=== PATIENT | male | born 1960 | race Caucasian/White ===

== ENCOUNTER 2024-03-20 17:43 | Emergency (ER) | payer BC, SELFPAY ==
[2024-03-20] VITALS (7 sets, daily range): BP systolic 83–125; BP diastolic 61–82; PULSE 79–110; RESP 10–20; TEMP 36.4; O2SAT 96–100
--- NOTE | ~2024-03-20 | XR_ITS ---
XR chest 1V portable DATE: 03/20/2024 19:10 INDICATION: Anaphylaxis TECHNIQUE: Portable upright AP chest on 03/20/2024 at 1906 hours COMPARISON: None FINDINGS: Normal heart size. There is aortic arch calcification and mild aortic tortuosity. No hilar or mediastinal enlargement. No pulmonary infiltrate or consolidation, pleural effusion or pulmonary vascular congestion or pneumo thorax is detected. Included skeletal structures are unremarkable. IMPRESSION: No active cardiopulmonary disease Aortic atherosclerosis Reviewed, dictated and finalized at location A.
--- NOTE | 2024-03-20 18:52 | ED.GENADULT ---
HPI - General Adult General Chief complaint: Nausea/Vomiting/Diarrhea Stated complaint: low blood pressure Time Seen by Provider: 03/20/24 18:50 History of Present Illness HPI narrative: This is a 63-year-old male presenting ED with chief complaint of multiple yellow jacket stings. Patient was out in the yd when his dog was attacked by several yellow jackets. While he was trying to save his dog he is sustained multiple stings to his elbows right hand and right neck. He then became very weak and shaky and his blood pressure was low. He is not have any trouble breathing/ throat swelling. He has had an episode of nausea and vomiting. No diarrhea. He has no previous anaphylactic reaction to bee stings. Related Data Allergies Allergy/AdvReac Type Severity Reaction Status Date / Time naproxen Allergy Mild itching Verified 12/26/20 09:11 and swelling PMFSH Past Medical History Medical History (Updated 03/20/24 @ 19:02 by Wilton Betancur MD) Benign hypertension Mixed hyperlipidemia Type 2 diabetes mellitus without complications Family History Family History Father Family history of premature coronary heart disease, Onset Age: 39 Family history of heart disease in male family member before age 55 Patient's father is Sibling Family history of lung cancer Family history of malignant neoplasm of brain Social History Social History Social History: Smoking status: Former smoker Tobacco type: cigarettes Second hand tobacco smoke exposure: No Smoking end date: 06/30/81 Alcohol intake: current Drinks per week: 2 Substance use: never Substance use type: does not use Living arrangements: with family Occupation/Education: occupation Gender identity (if verbalized by the patient): Male Sexual Orientation (if Verbalized by the Patient): Straight or Heterosexual Exam Narrative: APPEARANCE: Tremulous Head: atraumatic., no swelling of the tongue or uvula EYES: EOMI, NOSE: Atraumatic NECK: Trachea midline no stridor RESPIRATORY: No increased rate of breathing clear to auscultation CARDIOVASCULAR: Blood pressure low, extremities are cold, no tachycardia regular rate rhythm ABDOMINAL: Non-distended soft nontender MUSCULOSKELETAl: No obvious deformities NEURO: Alert. Moving 4/4 extremities SKIN:: Cool clammy PSYCHIATRIC: Normal affect Course Vital Signs Vital signs: Vital Signs Temperature 36.4 C L 03/20/24 17:50 Pulse Rate 84 03/20/24 17:50 Respiratory Rate 14 03/20/24 17:50 Blood Pressure 83/61 L 03/20/24 17:50 Pulse Oximetry 96 03/20/24 17:50 Oxygen Delivery Nasal Cannula 03/20/24 17:50 Oxygen Flow Rate 2 03/20/24 17:50 Temperature 36.4 C L 03/20/24 17:50 Pulse Rate 108 H 03/20/24 20:02 Respiratory Rate 14 03/20/24 20:02 Blood Pressure 122/82 03/20/24 20:02 Pulse Oximetry 100 03/20/24 20:02 Oxygen Delivery Nasal Cannula 03/20/24 17:50 Oxygen Flow Rate 2 03/20/24 17:50 Medical Decision Making MDM Narrative Medical decision making narrative: -Course: 63-year-old male presenting with hypotension, nausea vomiting after eating steak stung by several yellow jackets. Given 3 L normal saline bolus, epinephrine dexamethasone and Pepcid. He took Benadryl at home. Findings concerning for anaphylaxis. Patient will be monitored in the ED for several to see if his condition improves. -DDX includes but is not limited to:anaphylaxis, Hymenopteran envenomation -Co-morbidities complicating care: Well-controlled diabetes hypertension high cholesterol -Interventions: 0.3 mg IM epi, 10 mg dexamethasone, 40 mg Pepcid, 20 mg IV Benadryl -Shared decision making / Disposition: Signed out to the oncoming physician. Vital Signs Vital Signs: Vital Signs Temperature 36.4 C L 03/20/24 17:50 Pulse
[2024-03-20] MEDS: dexAMETHasone SOD PHOS INJ 10 MG/ML 1 ML VIAL IV PUSH (18:58)
[2024-03-20] MEDS: SODIUM CHLORIDE 0.9% IV 3,000 ML 999 ML IV CONT (18:58)
[2024-03-20] MEDS: FAMOTIDINE 20 MG/2 ML VIAL 40 MG IV PUSH (18:58)
--- NOTE | 2024-03-20 18:58 | ECG_ITS ---
Test Date: 2024-03-20 20:02:14 Measurements Intervals [place] Rate: 105 P: 11 SD: 183 QRS: 27 QRSD: 74 T: 91 QT: 335 QTc: 443 Interpretive Statements SINUS TACHYCARDIA NONSPECIFIC ST-T WAVE ABNORMALITY- DIFFUSE LEADS BASELINE WANDER- I, II, III BORDERLINE ECG No previous ECG available for comparison Electronically Signed On 03-20-2024 20:39:16 CDT by Cameron Westfall D.O.
[2024-03-20] MEDS: EPINEPHrine HCL INJ 1 MG/ML AMPUL 0.3 MG IM (19:00)
[2024-03-20] MEDS: diphenhydrAMINE HCl INJ 50 MG/ML VIAL 25 MG IV PUSH (19:07)
[2024-03-20 20:01] LABS: Basophils Percent Auto 0.2 % (0.2-1.2); Eosinophils Absolute Auto 0.1 K/mm3 (0-0.3); Eosinophils Percent Auto 0.3 % (0-4.4); Hematocrit 40.5 % (42.0-52.0); Immature Granulocyte Absolute 0.18 K/mm3 (0.00-0.031); Immature Granulocyte Percent A 0.9 % (0-0.5); Lymphocytes Absolute Auto 2.02 K/mm3 (0.9-3.2); Lymphocytes Percent Auto 9.6 % (18.3-44.2); Mean Corpuscular HGB Conc 34.6 g/dl (32-36); Mean Corpuscular Hemoglobin 32.3 pg (26-34); Mean Corpuscular Volume 93.5 fl (80-100); Mean Platelet Volume 10.2 fl (7.4-10.4); Monocytes Percent Auto 4.6 % (2.6-8.5); Neutrophils Absolute Auto 17.8 K/mm3 (1.3-6.7); Neutrophils Percent Auto 84.4 % (45.5-73.1); Platelet Count Result 216 k/mm3 (150-375); Red Blood Count 4.33 M/mm3 (4.6-6.20); Red Cell Distribution Width 12.3 % (11.5-14.5)
[2024-03-20 20:11] LABS: Alanine Aminotransferase 22 U/L (6-50); Albumin Level 3.6 g/dL (3.5-5.1); Alkaline Phosphatase 50 U/L (38-126); Anion Gap 12 mmol/L (4-12); Aspartate Amino Transferase 25 U/L (17-59); Bilirubin,Total 0.4 mg/dL (0.2-1.3); Blood Urea Nitrogen 16 mg/dL (9-20); Carbon Dioxide 22 mmol/L (22-30); Chloride 104 mmol/L (98-107); Estimated CRCL calculation 56 ml/min; Estimated Glomerular Filt Rate > 60; Glucose 204 mg/dL (65-110); Potassium 3.9 mmol/L (3.4-5.0); Sodium 138 mmol/L (137-145)
== END 2024-03-20 23:16 | disposition home or self-care (01) ==
PROVIDERS: Emergency Provider Emergency Medicine
DX: T63.461A Toxic effect of venom of wasps, accidental (unintentional), initial encounter (principal); T78.2XXA Anaphylactic shock, unspecified, initial encounter; I10 Essential (primary) hypertension; E11.9 Type 2 diabetes mellitus without complications; E78.2 Mixed hyperlipidemia; Z87.891 Personal history of nicotine dependence; R00.0 Tachycardia, unspecified; R94.31 Abnormal electrocardiogram [ECG] [EKG]; Z79.84 Long term (current) use of oral hypoglycemic drugs; Z79.82 Long term (current) use of aspirin; Z79.899 Other long term (current) drug therapy
CPT/HCPCS: 36415; 71045; 80053; 85025; 93005; 96361; 96372; 96374; 96375; 99284; J0171; J1100; J1200; J7030